=== PATIENT | female | born 1955 | race African-American/Black ===

== ENCOUNTER 2017-04-04 03:48 | Inpatient (IN) | payer OTHER ==
--- NOTE | 2017-03-08 15:36 | History & Physical Pre-Op ---
KENNETH MEADOWS 03/08/17 1529: General Information and HPI MD Statement: I have seen and personally examined ADRI GALE and documented this H&P. The patient is a 61 year old F who presented with a patient stated chief complaint of left low back pain radiating to her left posterior thigh and calf with numbness and tingling. Source of Information: patient, old records Exam Limitations: no limitations History of Present Illness: Adri is a 61-year-old female who is complaining of progressively worsening left low back pain radiating to her left posterior thigh and calf with associated numbness/tingling. She will occasionally experience right sided low back pain but no right leg pain. She complains of occasional weakness and dragging of her left leg. She also reports numbness in her left buttock, groin , and vaginal area. She denies any changes with bowel or bladder function. She does have chronic constipation. She states she was doing well until 01/2017 without injury or precipitating event. Her symptoms are worse with walking and better with laying. She claims that her pain level is a 7-8/10 in intensity, which is constant. Adri's MRI shows a recurrent left sided disc herniation at L3-4 with stenosis and degenerative changes, consistent with her symptoms. Due to the fact that Adri has had progressivley worsening symptoms and failure to respond to conservative measures, she wants nothing more to do with nonsurgical treatments and has been consented for a Revision Posterior Lumbar Decompression/ Fusion L3-4 with Instrumentation and Iliac Crest Bone Grafting on 04/04/2017. Allergies/Medications Allergies: Coded Allergies: lidocaine (Severe, anaphylaxis 10/04/16) sulfamethoxazole (From SEPTRA) (Intermediate, hives 10/04/16) tomato (Intermediate, hives 10/04/16) trimethoprim (From SEPTRA) (Intermediate, hives 10/04/16) Home Med list Albuterol Sulfate (Ventolin Hfa) 90 MCG HFA.AER.AD 2 PUF INH Q4 PRN SHORTNESS OF BREATH Fluticasone/Salmeterol (Advair 250-50 Diskus) 250 MCG-50 MCG/DOSE BLST.W.DEV 1 PUF INH BID ASTHMA (Reported) Compliance With Home Meds: FAIR Past History Medical History Neurological: NONE EENT: NONE Cardiovascular: NONE Respiratory: asthma Gastrointestinal: constipation Hepatic: NONE Renal: NONE Musculoskeletal: chronic back pain, disk herniation, degen joint disease, fracture, osteoarthritis, sciatica, spinal stenosis Psychiatric: NONE Endocrine: obesity Blood Disorders: NONE Cancer(s): NONE BULB GRADER/Reproductive: NONE Surgical History Pertinent Surgical History: , laminectomy, lumbar decompression L3-[address] Mayte Camara lumbar decompression L4-5 2011 breast reduction 2007 liposuction 2006 ORIF left leg 1981 s/p left leg skin grafting, s/p breast reduction 2006, s/p rev. left L3-4, L4-5, and L5-S1 DECOMPRESSION/FUSION WITH ICBG 10/13/2016, S/P ORIF LEFT LEG 1980, S/P LEG SKIN GRAFT, S/P LIPOSUCTION 2006 Past Family/Social History Family History Relations & Conditions if any MOTHER, , Age 73; Cause: CHF (congestive heart failure). FATHER, ; Cause: Unknown cause of morbidity or mortality. Psychosocial History Where Do You Live? Home Primary Language: [place] Smoking Status: Former Smoker (QUIT 1 MO AGO) ETOH Use: occasional use Illicit Drug Use: denies illicit drug use Other Social History: ENGAGED WITH 1 DAUGHTER AND 1 SON. Employment History Employment: Employed Profession/Employer: [employer] Review of Systems Review of Systems: REMARKABLE FOR THE ABOVE COMPLAINTS. Medication List Current Psychiatric Med(s): VENTOLIN INHALER 1-2 PUFFS Q 4 HOURS PRN SOB OXYCODONE 5/325 1 Q 4-6 HOURS PRN PAIN. VITAMIN D 1000IU/DAY COLACE 100MG DAILY Exam & Diagnostic Data Last 24 Hrs of Vital Signs/I&O HEIGHT: 5' 1 4 " WEIGHT: 239 LBS. Additional Physical exam findings to be documented separately. See addendum. Physical Exam General Appearance Alert, Oriented X3, Cooperative, No Acute Distress Skin No Rashes, No Breakdown, No Significant Lesion HEENT Atraumatic, PERRLA, EOMI, Mucous Membr. moist/pink Neck Supple, No JVD, No thryomegaly, +2 Carotid Pulse wo Bruit Lymphatic Cervical nl Cardiovascular Regular Rate, Normal S1, Normal S2, No Murmurs Lungs Clear to Auscultation, Normal Air Movement Abdomen Normal Bowel Sounds, Soft, No Tenderness, No Hepatospenomegaly, No Masses, GLOBOID Neurological Normal Speech, Sensation Intact, decreased left patellar reflex., LEFT QUAD ATROPHY, +SLR ON LEFT Extremities No Clubbing, No Cyanosis, No Edema, Normal Pulses Vascular Normal Pulses Assessment/Plan Assessment/Plan: Assessment: Recurrent disc herniation left L3-4 with stenosis and degenerative disc disease. Plan: Adri is scheduled for a revision posterior lumbar decompression and fusion at L3-4 with instrumentation and iliac crest bone grafting on 04/04/2017. We discussed the procedure in full detail as well as the pre-and postoperative course, follow-up care, and anticipated recovery. We also discussed the risks, alternatives, and benefits. The risks do not exclude , paralysis, infection, bleeding, continued pain, failure of the surgery, need for future surgery, DVT, vascular injury, CSF leak, etc., and given these risks, she still wishes to proceed. We discussed that there is no guarantee for the success or future success of the surgery but that 100% attempt will be made for full recovery. She is scheduled to follow-up with her primary care physician for preoperative medical clearance. Any changes in this patient's plan is based on this patient's outpatient clinical presentation. As Ranked By This Provider Problem List: 1. Asthma Attending MD Review Statement Attending Statement Attending MD Statement: examined this patient, discuss w/resident/PA/PATENT SOLICITOR, agreed w/resident/PA/PATENT SOLICITOR, reviewed images
[~2017-04-04] VITALS: Ht 154.9 cm; Wt 108.4 kg
[~2017-04-04 03:48] MED LIST: ADVAIR 250-501 EACH INH; BISAC-EVAC10 M1 PR; CALCIUM CARBON260 M1 PO; DOCUSATE SODIU100 M3 PO; MILK OF MA400 MG/52 PO; ONE DAILY MULT1 EAC2 PO; PERCOCET 5-3251 EACH PO; TYLENOL325 M1 PO; VENTOLIN HFA18 GM INH; VITAMIN D31000 UNI2 PO
--- NOTE | 2017-04-04 11:48 | Operative Report ---
Operative/Inv Procedure Report Surgery Date: 04/04/17 Name of Procedure: Lumbosacral inspection of fusion mass L3 4 laminectomies discectomy L3 4 left. Neuro lysis left L3 nerve root. Instrumented fusion with pedicle screws L3 4 bilateral. Lateral intertransverse process fusion with autologous morselized bone graft L3 4. Harvesting morselized bone graft last left posterior iliac crest. Reconstruction of bone graft site with Master graft implant. Use of fluoroscopy. Pre-Operative Diagnosis: Recurrent disc herniation L3 4 Post-Operative Diagnosis: Same Estimated Blood Loss: 450 Surgeon/Telephone Service Representative: CHARLOTTE MAI,JENNIFER RANDLE Anesthesia: general endotracheal tube Monitors: Neuro Operative/Procedure Note Note: After adequate general anesthesia was achieved the patient's placed in the prone position. The back was sterilely prepped and draped. An incision was made over the left posterior iliac crest carried down laterally and the Diamante retractor was placed. The osteotomes were used to collect cortical cancellus and cancellus bone along with gouges. Wound was irrigated packed with Master graft implant covered with Gelfoam and closed in layers with absorbable suture with lazaro in the skin. The midline incision was then entered sharply. Dissection was carried bilaterally over the area of the previous surgery. The fusion was inspected and there was gross motion between L3 and 4 signifying a nonunion. The previously placed bone graft was removed with the Kerrison and high-speed bur. Tenectomy was easily identified and the laminectomy was increased with the Kerrison and curettes. Aspect of L3 was removed and the screw aspect of L4 was removed. The foramen was full herniated disc and the discectomy was performed. A neuro lysis of the entrapped L3 nerve root on the left was also performed. Enterotomies were created in L3 and L4 bilaterally. The pedicle screws were placed using the protocol of checking after tapping and prior to screw placement with a ball tip probe. Screws were placed with excellent purchase of all screws except the right L3 screw which was adjusted using fluoroscopy and found to have excellent purchase. The rasp placed the screw heads were torqued tightened after perforation of the facets with the pencil point bur and compression was applied on the right side. A decision was made not to compress the left side given the patient. The lateral intertransverse process region and facet joints were covered in morselized bone graft in L3 and L4. We site. The construct was checked in AP and lateral plane and found to be appropriate. Closure the lumbodorsal fascia was performed suture the skin was closed with lazaro. After placement of sterile dressings the patient log rolled on to the stretcher and taken to the recovery room.
[2017-04-04 13:07] LABS: ABSOLUTE BASOPHIL COUNT 0 /CUMM (0.0-0.2); ABSOLUTE EOSINOPHIL COUNT 0 /CUMM (0.0-0.7); ABSOLUTE MONOCYTE COUNT 0.5 /CUMM (0.10-0.60); BASOPHIL % 0.2 % (0.0-2.0); MEAN CORPUSCULAR HGB 27.9 PG (27.0-31.0)
[2017-04-04 13:15] LABS: ABSOLUTE GRANULOCYTE CT 14.5 /CUMM (1.4-6.5); ABSOLUTE LYMPH COUNT 1.7 /CUMM (1.2-3.4); EOSINOPHIL % 0.1 % (0-5); HEMATOCRIT 41.9 % (37-47); MEAN CORPUSCULAR HGB CONC 32.3 G/DL (33.0-37.0); MEAN CORPUSCULAR VOLUME 86.4 FL (81.0-99.0); MEAN PLATELET VOLUME 9.6 FL (7.4-10.4); PLATELET COUNT 186 /CUMM (130-400); RBC DISTRIBUTION WIDTH 16.7 % (11.5-14.5); RED BLOOD CELL CT 4.84 /CUMM (4.20-5.40)
[2017-04-04] MEDS ORDERED: VITAMIN D31000 UNI2 PO (13:15)
[2017-04-04] MEDS ORDERED: ONE DAILY MULT1 EAC2 PO (13:15)
[2017-04-04] MEDS ORDERED: MILK OF MA400 MG/52 PO (13:15)
[2017-04-04] MEDS ORDERED: BISAC-EVAC10 M1 PR (13:15)
[2017-04-04] MEDS ORDERED: CALCIUM CARBON500 M2 PO (13:15)
[2017-04-04] MEDS ORDERED: TYLENOL325 M1 PO (13:15)
[2017-04-04] MEDS ORDERED: PERCOCET 5-3251 EACH PO (13:15)
[2017-04-04] MEDS ORDERED: DOCUSATE SODIU100 M3 PO (13:15)
[2017-04-04 13:17] LABS: GRANULOCYTE % 86.7 % (42.2-75.2); WHITE BLOOD CELL COUNT 16.7 /CUMM (4.8-10.8)
--- NOTE | 2017-04-04 13:18 | Patient Discharge Instructions ---
Acute Coronary Syndrome Inclusion Criteria At DC or during hospital stay patient has or had the following: ACS DIAGNOSIS No Discharge Core Measures Meds if any: Prescribed or Continued at Discharge Meds if any: NOT Prescribed or Continued at Discharge Congestive Heart Failure Inclusion Criteria At DC or during hospital stay patient has or had the following: CHF DIAGNOSIS No Discharge Core Measures Meds if any: Prescribed or Continued at Discharge Meds if any: NOT Prescribed or Continued at Discharge Cerebrovascular accident Inclusion Criteria At DC or during hospital stay patient has or had the following: CVA/TIA Diagnosis No Discharge Core Measures Meds if any: Prescribed or Continued at Discharge Meds if any: NOT Prescribed or Continued at Discharge Venous thromboembolism Inclusion Criteria VTE Diagnosis No VTE Type NONE VTE Confirmed by (Test) NONE Discharge Core Measures - Per Current guidelines, there needs to be overlap - treatment for the first 5 days of Warfarin therapy. - If discharged on Warfarin prior to 5 days of - overlap therapy, the patient will need to be - assessed for post discharge needs including - *Post discharge parental anticoagulation - *Warfarin and/or parental anticoagulation education - *Follow up date to check INR post discharge At least 5 days overlap therapy as Inpatient No Meds if any: Prescribed or Continued at Discharge Note: Overlap Therapy is Warfarin and Anticoagulant Meds if any: NOT Prescribed or Continued at Discharge
[2017-04-04 14:40] VITALS: BP 108/80
--- NOTE | 2017-04-04 14:40 | NUR ---
LATE ENTRY: PT UP TO FLOOR FROM PACU. STABLE. VS WNL. SEE ADMISSION ASSESSMENT FOR FURTHER DETAILS. NO ACUTE DISTRESS. ORIENTED TO ROOM AND CALL VILLA. VERBALIZED UNDERSTANDING. SAFETY MAINTAINED. TO REPORT TO ONCOMING RN WHO WILL THEN CARE FOR PT.
--- NOTE | 2017-04-04 15:25 | PN- Orthopedic ---
Subjective Subjective: POST-OP NOTE: Reports "dry mouth". No nausea. Asking for something to drink. Just arrived from pacu. Not yet out of bed. Denies dizziness. No shortness of breath. No chest pains. Due to void this afternoon. Reports her left thigh numbness (present pre- op) is "slightly better". Objective Vital Signs and I&Os Intake & Output 04/04 1600 04/04 0800 04/04 0000 04/03 1600 04/03 0800 04/03 0000 Intake Total Output Total Balance Patient 239 lb Weight pacu flowsheet reviewed Physical Exam: General - alert & oriented x 3. comfortable. no acute distress. Lungs - clear bilaterally. no w/r/r. Cardiac - s1s2. reg. Abdomen - soft. nontender. lumbar dressing intact. Extremities - warm bilaterally. no c/c/e. calves soft and nontender b/l. 5/5 DF/ PF b/l. sensation grossly equal and intact. Current Medications: Current Medications Sig/Rach Start time Last Medication Dose Route Stop Time Status Admin Acetaminophen 650 MG Q4P PRN 04/04 1300 AC PO Acetaminophen 1,000 MG .STK-MED ONE 04/04 639 DC IV 04/04 640 Albuterol Sulfate 2 PUF Q4 PRN 04/04 1300 AC INH Bisacodyl 10 MG DAILY NEEDED PRN 04/04 1300 AC KS Budesonide/ 2 PUF BID 04/04 2200 AC Formoterol Fumarate INH Calcium 600 MG BID 04/04 2200 AC PO Cefazolin Sodium 1,000 MG IQ8 04/04 1600 AC IV 04/05 0801 Cefazolin Sodium 2,000 MG ONCE 04/04 0000 NR IV 04/04 2359 Cholecalciferol 1,000 IU DAILY 04/05 1000 AC PO Docusate Sodium 100 MG TID 04/04 1600 AC PO Fentanyl Citrate 500 MCG .STK-MED ONE 04/04 640 DC IM 04/04 641 Hydromorphone HCl 2 MG .STK-MED ONE 04/04 639 DC IM 04/04 640 Lactated Ringer's 1,000 ML Q10H 04/04 1300 AC IV Magnesium Hydroxide 30 ML AT BEDTIME PRN 04/04 1315 AC PO Midazolam HCl 4 MG .STK-MED ONE 04/04 640 DC IM 04/04 641 Morphine Sulfate 1 MG Q3P PRN 04/04 1300 AC IV Multivitamins 1 TAB DAILY 04/05 1000 AC PO Ondansetron HCl 4 MG Q6P PRN 04/04 1300 AC IV Oxycodone/ 1 TAB Q4P PRN 04/04 1300 AC Acetaminophen PO Oxycodone/ 2 TAB Q4P PRN 04/04 1300 AC Acetaminophen PO Remifentanil 2 MG .STK-MED ONE 04/04 641 DC IV 04/04 642 Trimethobenzamide HCl 200 MG Q6P PRN 04/04 1300 AC IM Results Last 48 Hours of Labs: Laboratory Tests 04/04 1250 Hematology CBC w Diff MAN DIFF ORDERED WBC (4.8 - 10.8 /CUMM) 16.7 H RBC (4.20 - 5.40 /CUMM) 4.84 Hgb (12.0 - 16.0 G/DL) 13.5 Hct (37 - 47 %) 41.9 MCV (81.0 - 99.0 FL) 86.4 MCH (27.0 - 31.0 PG) 27.9 RDW (11.5 - 14.5 %) 16.7 H Plt Count (130 - 400 /CUMM) 186 MPV (7.4 - 10.4 FL) 9.6 Gran % (42.2 - 75.2 %) 86.7 H Lymphocytes % (20.5 - 51.1 %) 10.2 L Monocytes % (1.7 - 9.3 %) 2.8 Eosinophils % (0 - 5 %) 0.1 Basophils % (0.0 - 2.0 %) 0.2 Absolute Granulocytes (1.4 - 6.5 /CUMM) 14.5 H Absolute Lymphocytes (1.2 - 3.4 /CUMM) 1.7 Absolute Monocytes (0.10 - 0.60 /CUMM) 0.5 Absolute Eosinophils (0.0 - 0.7 /CUMM) 0 Absolute Basophils (0.0 - 0.2 /CUMM) 0 Platelet Estimate (ADEQUATE) ADEQUATE Normocytic RBCs VERIFIED Normochromic RBCs VERIFIED PUBS MCHC (33.0 - 37.0 G/DL) 32.3 L Assessment/Plan Assessment/Plan This 61 year old female is POD#0 s/p L3-4 laminectomies, instrumented fusion with pedicle screws L3-4, for recurrent disc herniation L3-4 advance diet as tolerated pain control as ordered ancef x 3 doses f/u cbc in am PT eval in am alps / ambulation will d/w Core Measures/Miscellaneous Venous Thromboembolism VTE Risk Factors: Age > 40, Obesity, Surgery VTE Contraindications: No Contraindications VTE Diagnosis: No Beta Paul Is Beta Paul a Home Med? No Antibiotics Is Patient on Antibiotics? Yes If Yes: prophylaxis
--- NOTE | 2017-04-04 15:50 | RADIOLOGY REPORT ---
EXAMINATION: XR LUMBOSACRAL SPINE CLINICAL INFORMATION: Lumbar laminectomy and L3-L4 fixation performed in operating room. COMPARISON: None TECHNIQUE: Intraoperative C-arm fluoroscopic imaging of lumbar spine was performed. AP and lateral spot fluoroscopy images (2 images) of the lumbar spine are submitted into the electronic picture archive. FLUOROSCOPY TIME: 1 minute. DOSE: 26.4 mGy FINDINGS: There is suboptimal anatomic detail on the fluoroscopic images. The lower lumbar vertebra have normal height and alignment. The posterior fusion rods and transpedicular screws at L3-L4 are in their expected positions. IMPRESSION: Status post L3-L4 spinal fusion.
[2017-04-04 22:01] VITALS: BP 110/80
--- NOTE | 2017-04-05 00:29 | NUR ---
ALERT AND ORIENTED X 3. 2L O2 VIA NC. SHORT OF BREATH AT REST. VITAL SIGNS STABLE. DENIES CHEST PAIN. + PULSES. DENIES NUMBNESS/TINGLING DSG TO BACK HAS OLD SCANT DRAINAGE. ONQ PUMP GOING AT 14ML/HR. PATIENT RESTING COMFORTABLY AT THIS TIME
[2017-04-05 07:35] VITALS: BP 106/80
[2017-04-05 07:51] LABS: ABSOLUTE BASOPHIL COUNT 0 /CUMM (0.0-0.2); ABSOLUTE EOSINOPHIL COUNT 0 /CUMM (0.0-0.7); ABSOLUTE GRANULOCYTE CT 7.9 /CUMM (1.4-6.5); ABSOLUTE LYMPH COUNT 2.5 /CUMM (1.2-3.4); BASOPHIL % 0.3 % (0.0-2.0); EOSINOPHIL % 0.1 % (0-5); GRANULOCYTE % 68.6 % (42.2-75.2); MEAN CORPUSCULAR HGB 28.5 PG (27.0-31.0); MEAN CORPUSCULAR HGB CONC 32.9 G/DL (33.0-37.0); MEAN CORPUSCULAR VOLUME 86.6 FL (81.0-99.0); MEAN PLATELET VOLUME 9.3 FL (7.4-10.4); PLATELET COUNT 170 /CUMM (130-400); RBC DISTRIBUTION WIDTH 16.4 % (11.5-14.5); RED BLOOD CELL CT 4.15 /CUMM (4.20-5.40); WHITE BLOOD CELL COUNT 11.4 /CUMM (4.8-10.8)
--- NOTE | 2017-04-05 12:42 | PN- Orthopedic ---
Subjective Subjective: Patient c/o expected postop incisional pain. No preop pain and no leg pain, numbness, or weakness. + appetite. No N/V. Tolerating po. Tolerating Percocet. Ambulating without assistance. +flatus and voiding without difficulty. Review of Systems: Remarkable for the above complaints. Objective Vital Signs and I&Os Vital Signs Date Time Temp Pulse Resp B/P B/P Pulse O2 O2 Flow FiO2 Mean Ox Delivery Rate 04/05 0918 94 Room Air Room Air 04/05 0815 94 Room Air 04/05 0757 20 94 Room Air 04/05 0757 20 96 Nasal 2.0L Cannula 04/05 0735 98.4 61 20 106/80 96 Nasal 2.0L Cannula 04/05 0000 Nasal 2.0L Cannula 04/04 2201 98.0 61 20 110/80 97 Nasal 2.0L Cannula 04/04 1742 Nasal 2.0L Cannula 04/04 1600 Nasal 2.0L Cannula 04/04 1440 93 Nasal 2.0L Cannula 04/04 1440 97.9 61 18 108/80 93 Nasal 2.0L Cannula Intake & Output 04/05 1600 04/05 0800 04/05 0000 04/04 1600 04/04 0800 04/04 0000 Intake Total 1000 100 240 Output Total 500 950 Balance 500 -850 240 Intake, IV 800 Intake, Oral 200 100 240 Output, Urine 500 950 Patient 239 lb Weight Weight Reported by Patient Measurement Method Physical Exam General Appearance: well developed/nourished, no apparent distress, alert, awake , mild distress Head: atraumatic, normal appearance Neck: normal inspection, supple Respiratory: normal breath sounds, no respiratory distress, lungs clear Cardiovascular: regular rate/rhythm Peripheral Pulses: 2+ tibialis posterior (R), 2+ tibialis posterior (L), 2+ dorsalis pedis (R), 2+ dorsalis pedis (L) Abdomen: normal bowel sounds, soft, non-tender, globoid Back: incision C/D/I. Dressing changed. No active bleeding. No drainage. Extremities: normal inspection, normal capillary refill Neurologic/Psychiatric: no motor/sensory deficits, awake, alert, oriented x 3, Neurovascularly intact without any new or worsening gross motor or sensory loss. Skin: intact, normal color, warm/dry Assessment/Plan Assessment/Plan Assessment: s/p Rev. PLDF L3-4 with Instr./ICBG Plan: Continue Percocet. Do's and Don'ts explained. Disch. Instr. given D/C patient to [facility] D/C IV. Will F/U as outpatient. Problem List: 1. Asthma Core Measures/Miscellaneous Venous Thromboembolism VTE Risk Factors: Age > 40, Obesity, Surgery VTE Contraindications: No Contraindications VTE Diagnosis: No Beta Paul Is Beta Paul a Home Med? No Antibiotics Is Patient on Antibiotics? Yes If Yes: prophylaxis Attending MD Review Statement Attending Statement Attending MD Statement: examined this patient, discuss w/resident/PA/RECEIVER DISPATCHER, agreed w/resident/PA/RECEIVER DISPATCHER
--- NOTE | 2017-04-05 13:56 | NUR ---
NURSING NOTE: PT C/O NAUSEA AND BURPING, ZOFRAN GIVEN PER PRN ORDER. PT DIDNT WANT TO EAT LUNCH. KENNETH RANDLE 416 AWARE, LEFT MESSAGE FOR DR CHARLOTTE MENSAH. NEEDS IN REACH, PT BACK IN BED
--- NOTE | 2017-04-05 14:30 | NUR ---
NURSING NOTE: ZOFRAN EFFECTIVE PER PT, NEEDS IN REACH,
[2017-04-05 14:34] VITALS: BP 118/78
[2017-04-05 22:44] VITALS: BP 110/80
[2017-04-06 06:53] VITALS: BP 118/70
--- NOTE | 2017-04-06 09:10 | PN- Orthopedic ---
Subjective Subjective: Patient reported passing flatus overnight and feels that her nausea resolved shortly thereafter. Presently her pain is controlled. She denies shortness of breath, difficulty breathing and chest pain. Objective Vital Signs and I&Os Vital Signs Date Time Temp Pulse Resp B/P B/P Pulse O2 O2 Flow FiO2 Mean Ox Delivery Rate 04/06 0820 92 Nasal 2.0L Cannula 04/06 0653 99.4 79 20 118/70 94 Room Air 04/06 0346 98.5 94 Nasal 2.0L Cannula 04/06 0000 Nasal 2.0L Cannula 04/05 2244 100.3 88 18 110/80 90 04/05 2030 91 Room Air 04/05 1600 Room Air 04/05 1434 98.1 69 20 118/78 93 Room Air 04/05 0918 94 Room Air Room Air Intake & Output 04/06 1600 04/06 0800 / 0000 04/05 1600 04/05 0800 04/05 0000 Intake Total 480 795 087 3134 340 Output Total 400 950 500 950 Balance 80 480 -125 500 -610 Intake, IV 75 800 Intake, Oral 480 480 750 200 340 Number 0 Bowel Movements Output, Urine 400 950 500 950 Physical Exam: General: AAO x3, no acute distress Cardiac: RRR, s1s2 Pulm: CTA bilaterally Abd: non-tender, non-distended Extremities: Moves all extremities, distal sensation intact. Skin warm and well perfused. Bilateral calves soft and non-tender Assessment/Plan Assessment/Plan This is a 61 year old female POD 2 s/p l 3-4 lami with fusion, stayed one extra night due to nausea that resolved with improved bowel function. plan for discharge today. Core Measures/Miscellaneous Venous Thromboembolism VTE Risk Factors: Age > 40, Obesity, Surgery VTE Contraindications: No Contraindications VTE Diagnosis: No Beta Paul Is Beta Paul a Home Med? No Antibiotics Is Patient on Antibiotics? Yes If Yes: prophylaxis
[2017-04-06 14:38] VITALS: BP 138/90
--- NOTE | 2017-04-06 16:33 | PN- Orthopedic ---
Subjective Subjective: Patient doing well. She is c/o expected postop incisional pain. No leg symptoms. No SOB/CP. No fever/chills. Lin. po. Ambulating without difficulty. Voiding without complaints. Review of Systems: Remarkable for the above complaints. Objective Vital Signs and I&Os Vital Signs Date Time Temp Pulse Resp B/P B/P Pulse O2 O2 Flow FiO2 Mean Ox Delivery Rate 04/06 1438 98.5 91 20 138/90 90 Room Air 04/06 0820 92 Nasal 2.0L Cannula 04/06 0653 99.4 79 20 118/70 94 Room Air 04/06 0346 98.5 94 Nasal 2.0L Cannula 04/06 0000 Nasal 2.0L Cannula 04/05 2244 100.3 88 18 110/80 90 04/05 2030 91 Room Air Intake & Output 04/06 1600 /08 0800 /08 0000 04/05 1600 / 0800 / 0000 Intake Total 480 613 691 5686 340 Output Total 400 950 500 950 Balance 80 480 -125 500 -610 Intake, IV 75 800 Intake, Oral 480 480 750 200 340 Number 0 Bowel Movements Output, Urine 400 950 500 950 Physical Exam General Appearance: well developed/nourished, no apparent distress, alert, awake Respiratory: normal breath sounds, no respiratory distress Cardiovascular: regular rate/rhythm Abdomen: normal bowel sounds, soft, non-tender Back: Incision C/D/I. Dressing changed. Neurologic/Psychiatric: Neurovascularly intact with no new or worsening gross motor or sensory loss. Skin: intact, normal color, warm/dry Assessment/Plan Assessment/Plan assessment: s/p Rev. PLDF L3-4 with Instr./ICBG. Plan: Discharge to [facility]. D/C IV Continue Percocet prn pain. Will F/U as outpatient. Problem List: 1. Asthma Core Measures/Miscellaneous Venous Thromboembolism VTE Risk Factors: Age > 40, Obesity, Surgery VTE Contraindications: No Contraindications VTE Diagnosis: No Beta Paul Is Beta Paul a Home Med? No Antibiotics Is Patient on Antibiotics? Yes If Yes: prophylaxis Attending MD Review Statement Attending Statement Attending MD Statement: examined this patient, discuss w/resident/PA/VALUE ANALYSIS COORDINATOR, agreed w/resident/PA/VALUE ANALYSIS COORDINATOR
== END 2017-04-06 16:25 | DRG 460 ==
LOC: SDA 03:48 → ENRESERV 13:05 → ENTRNSPT 14:17 → EDTRNSPT 14:24 → EDTRNSPTTYP 14:24 → EDTRNSPTSTS 14:25 → CMPTRNSPT 14:26 → 2NB 14:41 → ENPENDDIS 04-06 07:17 → 2NB 04-06 16:25
PROVIDERS: Orthopaedic Surgery Orthopaedic Surgery of the Spine; ADMIT Orthopaedic Surgery Orthopaedic Surgery of the Spine
PROC: 4A11X4G Monitoring of Peripheral Nervous Electrical Activity, Intraoperative, External Approach (ICD-10-PCS; principal; 2017-04-04)
PROC: 0QB30ZZ Excision of Left Pelvic Bone, Open Approach (ICD-10-PCS; principal; 2017-04-04)
PROC: 0SG307J Fusion of Lumbosacral Joint with Autologous Tissue Substitute, Posterior Approach, Anterior Column, Open Approach (ICD-10-PCS; principal; 2017-04-04)
PROC: 0ST40ZZ Resection of Lumbosacral Disc, Open Approach (ICD-10-PCS; principal; 2017-04-04)
DX: M51.26 Other intervertebral disc displacement, lumbar region (principal); E66.9 Obesity, unspecified; J45.909 Unspecified asthma, uncomplicated; Z87.891 Personal history of nicotine dependence; Z68.35 Body mass index [BMI] 35.0-35.9, adult
CPT/HCPCS: 2NBP; 36415; 72100; 87086; 88304; 97110-GO; 97116-GO; 97161-GP; 97530-GO; J0131; J0690; J1644; J2405; J3250; J3490; J7120